=== PATIENT | male | born 1975 | race Native Hawaiian/Other Pacific Islander ===

== ENCOUNTER 2018-04-23 17:13 | Inpatient (IN) | payer OTHER ==
[~2018-04-23] VITALS: Ht 177.8 cm; Wt 117.7 kg
[2018-04-23 17:22] VITALS: BP 172/85; TEMP 100.1
[2018-04-23 17:58] LABS: PLATELET COUNT 247 K/uL (142-355)
[2018-04-23 18:21] LABS: POTASSIUM 3.7 mmol/L (3.6-5.2)
[2018-04-23 19:00] VITALS: BP 162/90; TEMP 98.8
[2018-04-24] VITALS (8 sets, daily range): BP systolic 104–162; BP diastolic 64–94; TEMP 97.6–99.1; Ht 177.8 cm; Wt 117.7 kg
[2018-04-24 05:16] LABS: PLATELET COUNT 234 K/uL (142-355)
[2018-04-24 05:41] LABS: POTASSIUM 3.3 mmol/L (3.6-5.2)
[2018-04-25 04:00] VITALS: BP 134/79; TEMP 98.3
[2018-04-25 08:00] VITALS: BP 131/101; TEMP 97.6
[2018-04-25 11:46] LABS: PLATELET COUNT 286 K/uL (142-355)
[2018-04-25 12:00] VITALS: BP 156/94; TEMP 97.9
[2018-04-25 12:12] LABS: POTASSIUM 3.7 mmol/L (3.6-5.2)
[2018-04-25 16:00] VITALS: BP 157/90; TEMP 97.4
[2018-04-25 20:00] VITALS: BP 150/83; TEMP 97.9
[2018-04-26] VITALS: BP 132/71; TEMP 97.6
[2018-04-26 04:00] VITALS: BP 115/61; TEMP 97.7
[2018-04-26 05:40] LABS: POTASSIUM 3.4 mmol/L (3.6-5.2)
[2018-04-26 05:48] LABS: PLATELET COUNT 293 K/uL (142-355)
[2018-04-26 08:24] VITALS: BP 144/85; TEMP 98.1
[2018-04-26] MEDS ORDERED: AMLODIPINE BESYLATE PO (09:23)
[2018-04-26] MEDS ORDERED: METRONIDAZOL500 MG PO (09:25)
[2018-04-26] MEDS ORDERED: CIPRO500 MG PO (09:25)
[2018-04-26] MEDS ORDERED: TRAMADOL HYDROC50 MG PO (09:26)
== END 2018-04-26 11:10 | disposition home or self-care (01) | DRG 392 ==
LOC: ED 17:13 → MED/SURG 19:06
PROVIDERS: ADMIT Family Medicine
DX: K57.32 Diverticulitis of large intestine without perforation or abscess without bleeding (principal); I10 Essential (primary) hypertension; E66.01 Morbid (severe) obesity due to excess calories; G47.09 Other insomnia
CPT/HCPCS: 36415; 80053; 81000; 85027; 96360; 96372; 99284; J0744; J1650; J1885; J2270; J2405; J3490